=== PATIENT | male | born 1965 | race African-American/Black ===

== ENCOUNTER 2023-06-03 17:49 | Inpatient (IN) ==
[2023-06-03 18:07] VITALS: BMI 23.3
[2023-06-03 18:25] LABS: BILIRUBIN,URINE NEGATIVE (NEGATIVE); BLOOD/HEMOGLOBIN,URINE 5+ (NEGATIVE); GLUCOSE, URINE NEGATIVE (NEGATIVE); KETONES,URINE NEGATIVE (NEGATIVE); LEUKOCYTE ESTERASE ,URINE 3+ (NEGATIVE); NITRITES,URINE POSITIVE (NEGATIVE); PROTEIN,URINE 3+ (NEGATIVE); UROBILINOGEN,URINE NORMAL (NORMAL)
[2023-06-03 18:39] LABS: APPEARANCE,URINE TURBID (CLEAR); BACTERIA,URINE 2+ /HPF (NEGATIVE); COLOR,URINE YELLOW (YELLOW); RBC,URINE 0-2 /HPF (0-3); SQUAMOUS EPITHELIAL CELL,UR RARE /HPF (NEGATIVE)
[2023-06-03] MEDS ORDERED: ZOFRAN INJ 4 MG VIAL IVP ONE (18:54)
[2023-06-03] MEDS ORDERED: MORPHINE SULFATE INJ 4 MG IVP ONE (18:54)
[2023-06-03] MEDS ORDERED: MORPHINE SULFATE INJ 4 MG ONE (19:06)
[2023-06-03] MEDS ORDERED: ZOFRAN INJ 4 MG VIAL ONE (19:06)
[2023-06-03 19:12] LABS: HEMOGLOBIN 13.2 g/dL (13.5-18.0); NEUTROPHILS # (AUTO) 12.4 x10^3/uL (2.2-4.8); RED BLOOD COUNT 4.26 X10^6/uL (4.7-6.0)
[2023-06-03 19:16] LABS: BASOPHILS % (AUTO) 0.2 % (0.2-1.0); EOSINOPHILS % (AUTO) 0.1 % (0.9-2.9); HEMATOCRIT 38.1 % (42.0-54.0); LYMPHOCYTES # (AUTO) 0.9 X10^3/uL (1.3-2.9); MEAN CORPUSCULAR HGB CONC 34.6 g/dL (33.0-35.0); MEAN CORPUSCULAR VOLUME 89.4 fL (80.0-100.0); MONOCYTES # (AUTO) 1.2 x10^3/uL (0.3-0.8); MONOCYTES % (AUTO) 8.4 % (0.0-13.0); NEUTROPHILS % (AUTO) 85.3 % (42.0-75.0); PLATELET COUNT 300 X10^3/uL (150.0-450.0); RED CELL DISTRIBUTION WIDTH 12.5 % (11.6-16.5); WHITE BLOOD COUNT 14.5 X10^3/uL (3.6-10.0)
[2023-06-03 19:22] LABS: ALANINE AMINOTRANSFERASE 16 Units/L (12-78); ALBUMIN 3.2 g/dL (3.4-5.0); ALKALINE PHOSPHATASE 68 Units/L (46-116); ASPARTATE AMINO TRANSFERASE 15 Units/L (15-37); BLOOD UREA NITROGEN 11 mg/dL (7-18); CALCIUM 8.5 mg/dL (8.5-10.1); CARBON DIOXIDE 29.2 mmol/L (21-32); CHLORIDE 98 mmol/L (98-107); COR CA(FOR HYPOALB) 9.1 mg/dL (8.5-10.1); CREATININE 1.13 mg/dL (0.70-1.30); GLUCOSE 107 mg/dL (65-99); POTASSIUM 3.6 mmol/L (3.5-5.1); SODIUM 133 mmol/L (136-145); TOTAL PROTEIN 6.7 g/dL (6.4-8.2); eGFR NON BLACK RACES > 60 (>60)
--- NOTE | 2023-06-03 20:05 | CT ---
HISTORYpt c/o of swollen right side of groin and painful urination x2 days. pt states he does have a hernia to the area that he has had for 6 months.STUDYABDOMEN/PELVIS W/O CONCOMPARISONNoneTECHNIQUEMultiple axial images of the abdomen and pelvis were obtained from the lung bases to the pubic symphysis without the administration of IV contrast. Dose reduction techniques including Automated Exposure Control (AEC) and adjustment of mA and kV were utilized.FINDINGSThe lung bases are clear. Sensitivity is reduced without intravenous contrast. No liver lesion. The gallbladder is not distended. Normal adrenal glands. Normal right kidney.There is mild left hydronephrosis and mild left perinephric stranding. There is mild left hydroureter. No ureteral stone is identified. The urinary bladder demonstrates circumferential wall thickening. Prostate gland appears enlarged, heterogeneous and produces mass effect on the posterior urinary bladder. A degree of bladder outlet obstruction could be present.Unremarkable spleen contours. Noninflamed pancreas. Food noted within the stomach. The stomach is nonobstructed.There is a right inguinal hernia present containing small bowel and colon with fat and mesenteric vasculature.There are mildly distended small bowel loops present with air-fluid levels. No free air. No pelvic free fluid. Several tiny scattered bony sclerotic foci, too small to further characterize.IMPRESSIONRight inguinal hernia containing small bowel, colon, mesenteric fat and vasculature with signs of small bowel obstruction.Enlarged urinary bladder with thickened wall. Enlarged heterogeneous prostate gland. Mild left hydronephrosis and hydroureter without visible stone. Chronic urinary bladder outlet obstruction could be present. There may be back pressure on the left kidney. A left pyelonephritis is suspected. Urinary bladder mass or prostate mass could be present, incompletely evaluated. Cystoscopic follow-up and PSA evaluation should be considered.Electronically signed by: Nba Cole (Jun 03, 2023 20:03:56)
--- NOTE | 2023-06-03 20:06 | DR.UPM ---
HPI Time Seen Time Seen by Provider: 06/03/23 18:35 Complaint Chief Complaint:: pt c/o of swollen right side of groin and painful urination x2 days. COVID-19 Coronavirus risk:travel/contact w/high risk person: No Has patient experienced Coronavirus symptoms: No Source History Provided: Patient Mode of Arrival Mode of Arrival: Ambulatory Timing Onset of Chief Complaint: 06/01/23 PMH PMH Past Medical History: No Past Surgical History: Yes Surgical History: Ortho Surgery Past Surgical History Comment: arm Family History History of Family Medical Conditions: No Social History Does patient currently use any type of tobacco product: No Have you used tobacco products in the last 12 months: No Type of Tobacco Use: None Does any household member use tobacco: No Alcohol Use: Occasionally Do you use any recreational Drugs:: No Lives With: Family Lives Where: Home Travel Risk Coronavirus risk:travel/contact w/high risk person: No Has patient experienced Coronavirus symptoms: No Infectious screening In the last 2 months have you had wt loss of >10#?: NO Have you had fever, night sweats or hemotysis?: No Have you traveled outside the country in the last 6 months?: No Isolation: Standard PE Vital Signs Vitals: Vital Signs Temperature 99.8 F Pulse Rate 95 Respiratory Rate 20 Respiratory Rate 20 Respiratory Rate 20 Blood Pressure 121/79 O2 Sat by Pulse Oximetry 98 ROR Labs Reviewed 06/03/23 19:03 06/03/23 19:03 Laboratory: WBC 14.5 X10^3/uL (3.6-10.0) H 06/03/23 19:03 RBC 4.26 X10^6/uL (4.7-6.0) L 06/03/23 19:03 Hgb 13.2 g/dL (13.5-18.0) L 06/03/23 19:03 Hct 38.1 % (42.0-54.0) L 06/03/23 19:03 MCV 89.4 fL (80.0-100.0) 06/03/23 19:03 MCH 31.0 pg (27.0-34.0) 06/03/23 19:03 MCHC 34.6 g/dL (33.0-35.0) 06/03/23 19:03 RDW 12.5 % (11.6-16.5) 06/03/23 19:03 Plt Count 300 X10^3/uL (150.0-450.0) 06/03/23 19:03 MPV 6.0 fL (7.4-11.0) L 06/03/23 19:03 Neut % (Auto) 85.3 % (42.0-75.0) H 06/03/23 19:03 Lymph % (Auto) 6.0 % (21.0-51.0) L 06/03/23 19:03 [place] % (Auto) 8.4 % (0.0-13.0) 06/03/23 19:03 Eos % (Auto) 0.1 % (0.9-2.9) L 06/03/23 19:03 Baso % (Auto) 0.2 % (0.2-1.0) 06/03/23 19:03 Neut # (Auto) 12.4 x10^3/uL (2.2-4.8) H 06/03/23 19:03 Lymph # (Auto) 0.9 X10^3/uL (1.3-2.9) L 06/03/23 19:03 [place] # (Auto) 1.2 x10^3/uL (0.3-0.8) H 06/03/23 19:03 Eos # (Auto) 0.0 x10^3/uL (0.0-0.2) 06/03/23 19:03 Baso # (Auto) 0.0 X10^3/uL (0.0-0.1) 06/03/23 19:03 Absolute Nucleated RBC 0.1 /100WBC 06/03/23 19:03 Sodium 133 mmol/L (136-145) L 06/03/23 19:03 Corrected Sodium TNP 06/03/23 19:03 Potassium 3.6 mmol/L (3.5-5.1) 06/03/23 19:03 Chloride 98 mmol/L (98-107) 06/03/23 19:03 Carbon Dioxide 29.2 mmol/L (21-32) 06/03/23 19:03 BUN 11 mg/dL (7-18) 06/03/23 19:03 Creatinine 1.13 mg/dL (0.70-1.30) 06/03/23 19:03 Est GFR (MDRD) Af Amer > 60 (>60) 06/03/23 19:03 Est GFR (MDRD) Non-Af > 60 (>60) 06/03/23 19:03 Glucose 107 mg/dL (65-99) H 06/03/23 19:03 Calcium 8.5 mg/dL (8.5-10.1) 06/03/23 19:03 Corrected Calcium 9.1 mg/dL (8.5-10.1) 06/03/23 19:03 Total Bilirubin 1.40 mg/dL (0.2-1.0) H 06/03/23 19:03 AST 15 Units/L (15-37) 06/03/23 19:03 ALT 16 Units/L (12-78) 06/03/23 19:03 Alkaline Phosphatase 68 Units/L (46-116) 06/03/23 19:03 Total Protein 6.7 g/dL (6.4-8.2) 06/03/23 19:03 Albumin 3.2 g/dL (3.4-5.0) L 06/03/23 19:03 Globulin 3.5 g/dL (2.5-4.5) 06/03/23 19:03 Albumin/Globulin Ratio 0.9 Ratio (1.1-2.1) L 06/03/23 19:03 Specimen Type Clean catch urine 06/03/23 18:14 Urine Color Yellow (YELLOW) 06/03/23 18:14 Urine Appearance Turbid (CLEAR) 06/03/23 18:14 Urine pH 6.0 (5.0 - 8.0) 06/03/23 18:14 Ur Specific [place] 1.025 (1.000-1.030) 06/03/23 18:14 Urine Protein 3+ (NEGATIVE) 06/03/23 18:14 Urine Glucose (UA) Negative (NEGATIVE) 06/03/23 18:14 Urine Ketones Negative (NEGATIVE) 06/03/23 18:14 Urine Blood 5+ (NEGATIVE) 06/03/23 18:14 Urine Nitrite Positive (NEGATIVE) 06/03/23 18:14 Urine Bilirubin Negative (NEGATIVE) 06/03/23 18:14 Urine Urobilinogen Normal (NORMAL) 06/03/23 18:14 Ur Leukocyte Esterase 3+ (NEGATIVE) 06/03/23 18:14 Urine RBC 0-2 /HPF (0-3) 06/03/23 18:14 Urine WBC Tntc /HPF (0-5) A 06/03/23 18:14 Ur Squamous Epith Cells Rare /HPF (NEGATIVE) 06/03/23 18:14 Urine Bacteria 2+ /HPF (NEGATIVE) 06/03/23 18:14 Ur Culture Indicated? Yes/culture set up 06/03/23 18:14 Opioid Opioid Risk Tool Age (Willis box if 16-45): No History of Preadolescent Sexual Abuse: No Total: 0 Total Score Risk Category: Low Risk Copyright: Haris BRUNO predicting aberrant behaviors Discharge Plan Diagnosis Discharge Problem: Incarcerated right inguinal hernia, Acute pyelonephritis, Bladder outlet obstruction, Enlarged prostate with urinary obstruction Discharge Plan Patient Disposition: 09 ADMITTED INPATIENT Condition: Stable Prescriptions: No Action [facility] Concerns: Post Hospitalization: new medications and changes needed to prevent readmission or further decline. Pt educated and given instructions on all concerns. Plan of Treatment: Continue with present treatment and follow up plan. Pt is to keep follow up appointment as instructed and take medications as ordered. Orders to Discharge Patient Discharge Orders: Transfer (Routine); Ordered 06/03/23 Ordered By: ANUPAM PINEDA Follow ups/Referrals Follow ups/Referrals: NFD,None [Primary Care Provider] - 3 days Instructions Stand Alone Forms: Post Hospital Follow Up Care
[2023-06-03] MEDS ORDERED: ROCEPHIN VIAL 1 GRAM 1 G in NS 100 ML IV 100 ML IV SCH (20:45)
[2023-06-03] MEDS ORDERED: ROCEPHIN VIAL 1 GRAM ONE (21:13)
[2023-06-03] MEDS ORDERED: D5 LR 1,000 ML 1,000 ML IV ONE (21:14)
[2023-06-03] MEDS ORDERED: NS 100 ML IV 100 ML ONE (21:14)
[2023-06-03] MEDS: D5 LR 1,000 ML 1,000 ML IV SCH (21:23)
[2023-06-04] MEDS ORDERED: D5 LR 1,000 ML 1,000 ML IV ONE (04:33)
[2023-06-04] MEDS: D5 LR 1,000 ML 1,000 ML IV SCH ×4 (04:54→21:38)
[2023-06-04 06:16] LABS: BASOPHILS % (AUTO) 0.3 % (0.2-1.0); EOSINOPHILS # (AUTO) 0.1 x10^3/uL (0.0-0.2); EOSINOPHILS % (AUTO) 0.4 % (0.9-2.9); HEMATOCRIT 35.4 % (42.0-54.0); HEMOGLOBIN 12.5 g/dL (13.5-18.0); LYMPHOCYTES # (AUTO) 0.6 X10^3/uL (1.3-2.9); LYMPHOCYTES % (AUTO) 4.8 % (21.0-51.0); MEAN CORPUSCULAR HEMOGLOBIN 31.1 pg (27.0-34.0); MEAN CORPUSCULAR HGB CONC 35.1 g/dL (33.0-35.0); MEAN CORPUSCULAR VOLUME 88.4 fL (80.0-100.0); MEAN PLATELET VOLUME 6.1 fL (7.4-11.0); MONOCYTES # (AUTO) 1.2 x10^3/uL (0.3-0.8); MONOCYTES % (AUTO) 9.6 % (0.0-13.0); NEUTROPHILS # (AUTO) 10.8 x10^3/uL (2.2-4.8); NEUTROPHILS % (AUTO) 84.9 % (42.0-75.0); PLATELET COUNT 293 X10^3/uL (150.0-450.0); RED BLOOD COUNT 4.01 X10^6/uL (4.7-6.0); RED CELL DISTRIBUTION WIDTH 12.6 % (11.6-16.5); WHITE BLOOD COUNT 12.8 X10^3/uL (3.6-10.0)
[2023-06-04 06:31] LABS: ALANINE AMINOTRANSFERASE 12 Units/L (12-78); ALBUMIN 2.6 g/dL (3.4-5.0); ALKALINE PHOSPHATASE 58 Units/L (46-116); ASPARTATE AMINO TRANSFERASE 14 Units/L (15-37); BLOOD UREA NITROGEN 10 mg/dL (7-18); CARBON DIOXIDE 27.1 mmol/L (21-32); CHLORIDE 99 mmol/L (98-107); COR CA(FOR HYPOALB) 9.1 mg/dL (8.5-10.1); COR NA(FOR HYPERGLY) 133 mmol/L (136-145); CREATININE 0.93 mg/dL (0.70-1.30); GLUCOSE 120 mg/dL (65-99); MAGNESIUM 1.7 mg/dL (2.0-2.9); POTASSIUM 3.7 mmol/L (3.5-5.1); SODIUM 133 mmol/L (136-145); eGFR NON BLACK RACES > 60 (>60)
--- NOTE | 2023-06-04 08:12 | EKG ---
Test Reason : preop clearance Blood Pressure : */* mmHG Vent. Rate : 75 BPM Atrial Rate : 75 BPM P-R Int : 122 ms QRS Dur : 94 ms QT Int : 366 ms P-R-T Axes : 64 -51 52 degrees QTc Int : 408 ms Normal sinus rhythm Left anterior fascicular block Abnormal ECG No previous ECGs available Confirmed by Lacho Linn ([id number]) on 06/05/2023 8:23:42 AM Referred By: Confirmed By: Lacho Linn
[2023-06-04] MEDS ORDERED: ZOFRAN INJ 4 MG VIAL ONE (08:23)
[2023-06-04] MEDS ORDERED: DILAUDID INJ ONE (08:23)
[2023-06-04] MEDS: DILAUDID INJ IVP PRN ×2 (08:32→19:43)
[2023-06-04] MEDS: ZOFRAN INJ 4 MG VIAL IVP PRN (08:33)
--- NOTE | 2023-06-04 08:44 | RAD ---
HISTORYAbdominal painSTUDYKUBCOMPARISONNoneFIND INGSAbdominal gas pattern is nonspecific and nonobstructive. No abnormal masses or abnormal calcifications are identified. Bladder appears distended. Regional skeleton is intact.IMPRESSIONNonspecific, nonobstructive bowel gas patternDistended bladderElectronically signed by: TAM ALMONTE (Jun 04, 2023 08:43:38)
--- NOTE | 2023-06-04 08:46 | RAD ---
HISTORYAbdominal painSTUDYChest AP portableCOMPARISONNoneFINDINGSHeart size is normal. Anamika are normal. Lungs are generally hyperinflated but free of acute infiltrates. No pleural effusions are identified. There is minimal subsegmental atelectasis in the left costophrenic angle. Bony thorax is unremarkable.IMPRESSIONLungs generally hyperinflated but free of acute infiltrates.Electronically signed by: TAM ALMONTE (Jun 04, 2023 08:45:42)
[2023-06-04] MEDS ORDERED: ROCEPHIN VIAL 1 GRAM 1 G in NS 100 ML IV 100 ML IV SCH (09:00)
[2023-06-04] MEDS ORDERED: K-DUR TAB 20 MEQ PO SCH (14:00)
[2023-06-04] MEDS ORDERED: CONSULT PHARMACY - POTASSIUM & MAGNESIUM XX SCH (14:00)
[2023-06-04] MEDS: MAG-OX TAB PO SCH ×2 (14:31→15:17)
[2023-06-05] MEDS: ROCEPHIN VIAL 1 GRAM 1 G in NS 100 ML IV 100 ML IV SCH ×2 (02:26→22:30)
[2023-06-05] MEDS: D5 LR 1,000 ML 1,000 ML IV SCH (06:10)
[2023-06-05 06:27] LABS: BASOPHILS % (AUTO) 0.4 % (0.2-1.0); EOSINOPHILS # (AUTO) 0.2 x10^3/uL (0.0-0.2); EOSINOPHILS % (AUTO) 1.8 % (0.9-2.9); HEMATOCRIT 37.7 % (42.0-54.0); HEMOGLOBIN 13.1 g/dL (13.5-18.0); LYMPHOCYTES % (AUTO) 12.4 % (21.0-51.0); MEAN CORPUSCULAR HEMOGLOBIN 31.4 pg (27.0-34.0); MEAN CORPUSCULAR HGB CONC 34.7 g/dL (33.0-35.0); MEAN CORPUSCULAR VOLUME 90.6 fL (80.0-100.0); MEAN PLATELET VOLUME 7.1 fL (7.4-11.0); MONOCYTES # (AUTO) 0.8 x10^3/uL (0.3-0.8); MONOCYTES % (AUTO) 9.4 % (0.0-13.0); NEUTROPHILS # (AUTO) 6.3 x10^3/uL (2.2-4.8); PLATELET COUNT 295 X10^3/uL (150.0-450.0); RED BLOOD COUNT 4.16 X10^6/uL (4.7-6.0); RED CELL DISTRIBUTION WIDTH 12.6 % (11.6-16.5); WHITE BLOOD COUNT 8.4 X10^3/uL (3.6-10.0)
[2023-06-05 06:40] LABS: ALANINE AMINOTRANSFERASE 21 Units/L (12-78); ALBUMIN 2.9 g/dL (3.4-5.0); ALKALINE PHOSPHATASE 65 Units/L (46-116); ASPARTATE AMINO TRANSFERASE 25 Units/L (15-37); BLOOD UREA NITROGEN 8 mg/dL (7-18); CALCIUM 8.4 mg/dL (8.5-10.1); CARBON DIOXIDE 30.5 mmol/L (21-32); CHLORIDE 98 mmol/L (98-107); COR CA(FOR HYPOALB) 9.3 mg/dL (8.5-10.1); CREATININE 0.98 mg/dL (0.70-1.30); GLUCOSE 101 mg/dL (65-99); POTASSIUM 3.9 mmol/L (3.5-5.1); SODIUM 134 mmol/L (136-145); eGFR NON BLACK RACES > 60 (>60)
[2023-06-05] MEDS ORDERED: LR 1,000 ML IV 1,000 ML IV ONE (07:15)
[2023-06-05] MEDS ORDERED: ANCEF VIAL 1 GRAM ONE (07:15)
[2023-06-05] MEDS ORDERED: NS 100 ML IV 100 ML ONE (07:16)
[2023-06-05] MEDS ORDERED: QUELICIN (OR ANECTINE) ONE (07:26)
[2023-06-05] MEDS ORDERED: ZOFRAN INJ 4 MG VIAL ONE (07:26)
[2023-06-05] MEDS ORDERED: FENTANYL VIAL INJ 250 mcg ONE (07:26)
[2023-06-05] MEDS ORDERED: ZEMURON 100 MG VIAL ONE (07:26)
[2023-06-05] MEDS ORDERED: POLYMYXIN B SULFATE ONE (07:26)
[2023-06-05] MEDS ORDERED: PEPCID 20 MG VIAL ONE (07:26)
[2023-06-05] MEDS ORDERED: DIPRIVAN VIAL 20 ML ONE (07:26)
[2023-06-05] MEDS ORDERED: VERSED ONE (07:26)
[2023-06-05] MEDS ORDERED: XYLOCAINE 2 % (PLAIN) ONE (07:29)
[2023-06-05] MEDS ORDERED: SUPRANE ONE (07:36)
[2023-06-05] MEDS ORDERED: EPHEDRINE SULFATE INJ ONE (07:57)
[2023-06-05] MEDS ORDERED: CIPRO IV 400 MG PREMIX* 400 MG/200 ML IV.SOLN. IV ONE (08:03)
[2023-06-05] MEDS ORDERED: MARCAINE 0.5% ONE (08:50)
[2023-06-05] MEDS ORDERED: BRIDION ONE (09:03)
[2023-06-05] MEDS ORDERED: REGLAN INJ 10 MG VIAL IVP PRN (09:20)
[2023-06-05] MEDS ORDERED: DILAUDID INJ IVP PRN (09:20)
[2023-06-05] MEDS ORDERED: ZOFRAN INJ 4 MG VIAL IVP PRN (09:20)
[2023-06-05] MEDS ORDERED: BARHEMSYS INJ IVP PRN (09:20)
[2023-06-05] MEDS ORDERED: BENADRYL INJ 50 MG VIAL IVP PRN (09:20)
[2023-06-05] MEDS: DILAUDID INJ IVP PRN ×3 (10:38→22:31)
[2023-06-05] MEDS: D5 1/2 NS 1,000 ML 1,000 ML IV SCH ×2 (10:38→20:35)
[2023-06-05] MEDS: ZOFRAN INJ 4 MG VIAL IVP PRN (10:39)
--- NOTE | 2023-06-05 20:33 | DR.CONSULT ---
CONSULT Consultation for Day of: Date: 06/04/23 Chief Complaint Chief Complaint: Consult for UTI/medical management Allergies Allergies Allergy/AdvReac Type Severity Reaction Status Date / Time No Known Allergies Allergy Verified 06/03/23 18:21 History of Present Illness History of Present Illness: This is a 57-year-old white male who presented to the [facility] and emergency department with an incarcerated right inguinal hernia. He was admitted by general surgeon, Dr. Silva for surgical intervention for this. He is also noted to have a UTI on admission and was started on IV Rocephin. He denies any other medical problems and does not take any medications. Past Surgical History Surgical History: Ortho Surgery Social History Does patient currently use any type of tobacco product: No Have you used tobacco products in the last 12 months: No Type of Tobacco Use: None Does any household member use tobacco: No Alcohol Use: None Drug Use: Methamphetamine Medications Home Medications: No Known Allergies Allergy (Verified 06/03/23 18:21) CONTINUE taking the following medications NK 06/03/23 [History] Review of Systems Constitutional: Weakness Eyes: No Symptoms Reported ENT: No Symptoms Reported Respiratory: No Symptoms Reported Cardiovascular: No Symptoms Reported Gastrointestinal: Nausea Genitourinary: Dysuria Musculoskeletal: No Symptoms Reported Skin: No Symptoms Reported Neurological: No Symptoms Reported Physical Exam Vital Signs: Vital Signs Temperature 98.0 F Pulse Rate 88 Pulse Rate 86 Pulse Rate 80 Pulse Rate 78 Pulse Rate 80 Pulse Rate 78 Pulse Rate 79 Pulse Rate 75 Respiratory Rate 18 Respiratory Rate 18 Respiratory Rate 18 Respiratory Rate 17 Respiratory Rate 17 Respiratory Rate 16 Respiratory Rate 16 Respiratory Rate 16 Respiratory Rate 16 Respiratory Rate 16 Respiratory Rate 16 Blood Pressure 124/63 Blood Pressure 120/63 Blood Pressure 112/62 Blood Pressure 111/59 Blood Pressure 112/58 Blood Pressure 117/76 Blood Pressure 124/80 Blood Pressure 132/80 O2 Sat by Pulse Oximetry 96 O2 Sat by Pulse Oximetry 96 O2 Sat by Pulse Oximetry 96 O2 Sat by Pulse Oximetry 96 O2 Sat by Pulse Oximetry 100 O2 Sat by Pulse Oximetry 100 O2 Sat by Pulse Oximetry 100 O2 Sat by Pulse Oximetry 100 Oriented: Normal Eyes: Normal Ear: Normal Nose: Normal Throat: Normal Respiratory: Clear Throughout Cardiovascular: Normal : Dysuria Auscultation: Bowel Sounds: Normal Palpation: Normal Tenderness: Normal Skin: Normal Musculoskeletal: Normal Psychiatric: Normal Mood Description: Calm Affect: Normal Speech Pattern: Clear and Appropriate Plan (1) Acute pyelonephritis: Status: Acute Plan: Continue IV Rocephin (2) Enlarged prostate with urinary obstruction: Status: Acute Plan: Patient will need urological referral upon discharge home. In the meantime we will start him on tamsulosin 0.4 mg daily. (3) Incarcerated right inguinal hernia: Status: Acute Plan: Treatment per general surgery (4) Bladder outlet obstruction: Status: Acute Plan: Start tamsulosin 0.4 mg daily. Patient will need referral to urologist as outpatient.
[2023-06-05] MEDS: CIPRO IV 400 MG PREMIX* 400 MG/200 ML IV.SOLN. IV SCH (20:35)
--- NOTE | 2023-06-05 20:37 | PCM.PROG ---
Progress Note Progress Note for Day of Date of Exam: 06/05/23 Subjective Subjective: Patient is lying in bed and appears mildly uncomfortable this afternoon. He has had surgery earlier in the day. He does have pain medication ordered. He reports no other problems at this time. I do see that his blood pressure has trended up some this afternoon but it could be result of the pain he is having from his earlier surgery. We will continue to monitor this and address it if he remains elevated. Past Medical Family Social History Allergies: Allergies No Known Allergies Allergy (Verified 06/03/23 18:21) Review of Systems ROS: No change since H&P Vital Signs and I&O's Vital Signs: Vital Signs Temperature 98.5 F Temperature 97.9 F Temperature 97.9 F Temperature 97.9 F Pulse Rate [Right Brachial] 94 Pulse Rate [Right Brachial] 78 Pulse Rate [Right Brachial] 76 Pulse Rate [Right Brachial] 78 Respiratory Rate 20 Respiratory Rate 16 Respiratory Rate 16 Respiratory Rate 18 Respiratory Rate 18 Respiratory Rate 16 Blood Pressure [Right Arm] 177/75 Blood Pressure [Right Arm] 158/90 Blood Pressure [Right Arm] 155/90 Blood Pressure [Right Arm] 148/93 O2 Sat by Pulse Oximetry 95 O2 Sat by Pulse Oximetry 96 O2 Sat by Pulse Oximetry 96 O2 Sat by Pulse Oximetry 96 Intake and Output: Intake & Output 06/03/23 06/04/23 06/05/23 06/06/23 11:59 11:59 11:59 11:59 Intake Total 1495 / 1495 3673 / 3673 0 / 0 Output Total 675 / 675 1670 / 1670 900 / 900 Balance 820 / 820 2002 -900 / -900 Physical Exam Oriented: Normal Eyes: Normal Ear: Normal Nose: Normal Throat: Normal Respiratory: Normal Cardiovascular: Normal : Dysuria Auscultation: Bowel Sounds: Normal Tenderness: Normal Skin: Normal Musculoskeletal: Normal Psychiatric: Normal Mood Description: Calm Affect: Normal Speech Pattern: Clear and Appropriate Laboratory and Diagnostics 06/05/23 05:54 06/05/23 05:54 Labs: 06/03/23 18:14 Urine,Clean Catch Urine Culture - Final Klebsiella Oxytoca Laboratory WBC 8.4 X10^3/uL (3.6-10.0) 06/05/23 05:54 RBC 4.16 X10^6/uL (4.7-6.0) L 06/05/23 05:54 Hgb 13.1 g/dL (13.5-18.0) L 06/05/23 05:54 Hct 37.7 % (42.0-54.0) L 06/05/23 05:54 MCV 90.6 fL (80.0-100.0) 06/05/23 05:54 MCH 31.4 pg (27.0-34.0) 06/05/23 05:54 MCHC 34.7 g/dL (33.0-35.0) 06/05/23 05:54 RDW 12.6 % (11.6-16.5) 06/05/23 05:54 Plt Count 295 X10^3/uL (150.0-450.0) 06/05/23 05:54 MPV 7.1 fL (7.4-11.0) L 06/05/23 05:54 Neut % (Auto) 76.0 % (42.0-75.0) H 06/05/23 05:54 Lymph % (Auto) 12.4 % (21.0-51.0) L 06/05/23 05:54 [place] % (Auto) 9.4 % (0.0-13.0) 06/05/23 05:54 Eos % (Auto) 1.8 % (0.9-2.9) 06/05/23 05:54 Baso % (Auto) 0.4 % (0.2-1.0) 06/05/23 05:54 Neut # (Auto) 6.3 x10^3/uL (2.2-4.8) H 06/05/23 05:54 Lymph # (Auto) 1.0 X10^3/uL (1.3-2.9) L 06/05/23 05:54 [place] # (Auto) 0.8 x10^3/uL (0.3-0.8) 06/05/23 05:54 Eos # (Auto) 0.2 x10^3/uL (0.0-0.2) 06/05/23 05:54 Baso # (Auto) 0.0 X10^3/uL (0.0-0.1) 06/05/23 05:54 Absolute Nucleated RBC 0.0 /100WBC 06/05/23 05:54 Sodium 134 mmol/L (136-145) L 06/05/23 05:54 Corrected Sodium TNP 06/05/23 05:54 Potassium 3.9 mmol/L (3.5-5.1) 06/05/23 05:54 Chloride 98 mmol/L (98-107) 06/05/23 05:54 Carbon Dioxide 30.5 mmol/L (21-32) 06/05/23 05:54 BUN 8 mg/dL (7-18) 06/05/23 05:54 Creatinine 0.98 mg/dL (0.70-1.30) 06/05/23 05:54 Est GFR (MDRD) Af Amer > 60 (>60) 06/05/23 05:54 Est GFR (MDRD) Non-Af > 60 (>60) 06/05/23 05:54 Glucose 101 mg/dL (65-99) H 06/05/23 05:54 Calcium 8.4 mg/dL (8.5-10.1) L 06/05/23 05:54 Corrected Calcium 9.3 mg/dL (8.5-10.1) 06/05/23 05:54 Magnesium 2.0 mg/dL (2.0-2.9) 06/05/23 05:54 Total Bilirubin 0.80 mg/dL (0.2-1.0) 06/05/23 05:54 AST 25 Units/L (15-37) 06/05/23 05:54 ALT 21 Units/L (12-78) 06/05/23 05:54 Alkaline Phosphatase 65 Units/L (46-116) 06/05/23 05:54 Total Protein 7.0 g/dL (6.4-8.2) 06/05/23 05:54 Albumin 2.9 g/dL (3.4-5.0) L 06/05/23 05:54 Globulin 4.1 g/dL (2.5-4.5) 06/05/23 05:54 Albumin/Globulin Ratio 0.7 Ratio (1.1-2.1) L 06/05/23 05:54 Specimen Type Clean catch urine 06/03/23 18:14 Urine Color Yellow (YELLOW) 06/03/23 18:14 Urine Appearance Turbid (CLEAR) 06/03/23 18:14 Urine pH 6.0 (5.0 - 8.0) 06/03/23 18:14 Ur Specific [place] 1.025 (1.000-1.030) 06/03/23 18:14 Urine Protein 3+ (NEGATIVE) 06/03/23 18:14 Urine Glucose (UA) Negative (NEGATIVE) 06/03/23 18:14 Urine Ketones Negative (NEGATIVE) 06/03/23 18:14 Urine Blood 5+ (NEGATIVE) 06/03/23 18:14 Urine Nitrite Positive (NEGATIVE) 06/03/23 18:14 Urine Bilirubin Negative (NEGATIVE) 06/03/23 18:14 Urine Urobilinogen Normal (NORMAL) 06/03/23 18:14 Ur Leukocyte Esterase 3+ (NEGATIVE) 06/03/23 18:14 Urine RBC 0-2 /HPF (0-3) 06/03/23 18:14 Urine WBC Tntc /HPF (0-5) A 06/03/23 18:14 Ur Squamous Epith Cells Rare /HPF (NEGATIVE) 06/03/23 18:14 Urine Bacteria 2+ /HPF (NEGATIVE) 06/03/23 18:14 Ur Culture Indicated? Yes/culture set up 06/03/23 18:14 Plan (1) Acute pyelonephritis: Status: Acute Narrative Support Text: Urine culture has come back and shows the patient has grown out Klebsiella oxytocin and it is sensitive to Rocephin with PRIYANKA of less than 1. Plan: Continue IV Rocephin. (2) Enlarged prostate with urinary obstruction: Status: Acute Plan: Start the patient on tamsulosin. (3) Incarcerated right inguinal hernia: Status: Acute Plan: Treatment per general surgery. (4) Bladder outlet obstruction: Status: Acute Plan: Patient will need urology referral as outpatient.
[2023-06-05] MEDS: FLOMAX PO SCH (22:30)
[2023-06-06] MEDS: D5 1/2 NS 1,000 ML 1,000 ML IV SCH ×2 (03:30→05:02)
[2023-06-06] MEDS: DILAUDID INJ IVP PRN ×2 (05:38→09:36)
[2023-06-06 06:31] LABS: BASOPHILS % (AUTO) 0.3 % (0.2-1.0); EOSINOPHILS # (AUTO) 0.1 x10^3/uL (0.0-0.2); EOSINOPHILS % (AUTO) 0.9 % (0.9-2.9); HEMATOCRIT 35.5 % (42.0-54.0); HEMOGLOBIN 12.6 g/dL (13.5-18.0); LYMPHOCYTES # (AUTO) 0.9 X10^3/uL (1.3-2.9); LYMPHOCYTES % (AUTO) 12.7 % (21.0-51.0); MEAN CORPUSCULAR HEMOGLOBIN 31.3 pg (27.0-34.0); MEAN CORPUSCULAR HGB CONC 35.5 g/dL (33.0-35.0); MEAN CORPUSCULAR VOLUME 88.2 fL (80.0-100.0); MEAN PLATELET VOLUME 6.8 fL (7.4-11.0); MONOCYTES # (AUTO) 0.8 x10^3/uL (0.3-0.8); MONOCYTES % (AUTO) 11.8 % (0.0-13.0); NEUTROPHILS # (AUTO) 5.3 x10^3/uL (2.2-4.8); NEUTROPHILS % (AUTO) 74.3 % (42.0-75.0); PLATELET COUNT 275 X10^3/uL (150.0-450.0); RED BLOOD COUNT 4.02 X10^6/uL (4.7-6.0); RED CELL DISTRIBUTION WIDTH 12.6 % (11.6-16.5); WHITE BLOOD COUNT 7.1 X10^3/uL (3.6-10.0)
[2023-06-06 06:39] LABS: ALANINE AMINOTRANSFERASE 20 Units/L (12-78); ALBUMIN 2.3 g/dL (3.4-5.0); ALKALINE PHOSPHATASE 58 Units/L (46-116); ASPARTATE AMINO TRANSFERASE 16 Units/L (15-37); BLOOD UREA NITROGEN 4 mg/dL (7-18); CALCIUM 7.9 mg/dL (8.5-10.1); CARBON DIOXIDE 30.8 mmol/L (21-32); CHLORIDE 96 mmol/L (98-107); COR CA(FOR HYPOALB) 9.3 mg/dL (8.5-10.1); COR NA(FOR HYPERGLY) 133 mmol/L (136-145); CREATININE 0.78 mg/dL (0.70-1.30); GLUCOSE 125 mg/dL (65-99); MAGNESIUM 1.6 mg/dL (2.0-2.9); POTASSIUM 3.5 mmol/L (3.5-5.1); SODIUM 132 mmol/L (136-145); TOTAL PROTEIN 6.1 g/dL (6.4-8.2); eGFR NON BLACK RACES > 60 (>60)
[2023-06-06] MEDS ORDERED: CONSULT PHARMACY - POTASSIUM & MAGNESIUM XX SCH ×2 (07:00→08:00)
--- NOTE | 2023-06-06 08:05 | DR.PROGNOT ---
HOSPITAL PROGRESS NOTE Progress Note for Day of: Progress Note Date: 06/06/23 Chief Complaint Chief Complaint: feeling better today . still having significant lower abdominal pain , no N,V .. had low grade fever from UTI . WBC 7.1 , BS 125, [place] 2.3 .. BUN/Creat normal Past Medical Family Social History Allergies: Allergies No Known Allergies Allergy (Verified 06/03/23 18:21) Review Of Systems ROS: No change since H&P Vital Signs Vital Signs: Vital Signs Temperature 99.2 F Temperature 98.9 F Pulse Rate [Right Brachial] 81 Pulse Rate [Right Brachial] 91 Respiratory Rate 20 Respiratory Rate 20 Respiratory Rate 20 Respiratory Rate 20 Blood Pressure [Right Arm] 138/75 Blood Pressure [Right Arm] 133/80 O2 Sat by Pulse Oximetry 95 O2 Sat by Pulse Oximetry 95 Physical Exam Oriented: Normal Eyes: Normal Ear: Normal Nose: Normal Throat: Normal Respiratory: Normal Cardiovascular: Normal : Dysuria GI:Auscultation: Normal GI:Palpation: Other (soft, flat abdomen with lower abdominal tenderness .moderate scrotal edema .BS+) GI: Tenderness: Normal Skin: Normal Musculoskeletal: Normal Psychiatric: Normal Mood Description: Calm Affect: Normal Speech Pattern: Clear and Appropriate Laboratory and Diagnostics 06/06/23 05:25 06/06/23 05:25 Labs: 06/03/23 18:14 Urine,Clean Catch Urine Culture - Final Klebsiella Oxytoca Laboratory WBC 7.1 X10^3/uL (3.6-10.0) 06/06/23 05:25 RBC 4.02 X10^6/uL (4.7-6.0) L 06/06/23 05:25 Hgb 12.6 g/dL (13.5-18.0) L 06/06/23 05:25 Hct 35.5 % (42.0-54.0) L 06/06/23 05:25 MCV 88.2 fL (80.0-100.0) 06/06/23 05:25 MCH 31.3 pg (27.0-34.0) 06/06/23 05:25 MCHC 35.5 g/dL (33.0-35.0) H 06/06/23 05:25 RDW 12.6 % (11.6-16.5) 06/06/23 05:25 Plt Count 275 X10^3/uL (150.0-450.0) 06/06/23 05:25 MPV 6.8 fL (7.4-11.0) L 06/06/23 05:25 Neut % (Auto) 74.3 % (42.0-75.0) 06/06/23 05:25 Lymph % (Auto) 12.7 % (21.0-51.0) L 06/06/23 05:25 [place] % (Auto) 11.8 % (0.0-13.0) 06/06/23 05:25 Eos % (Auto) 0.9 % (0.9-2.9) 06/06/23 05:25 Baso % (Auto) 0.3 % (0.2-1.0) 06/06/23 05:25 Neut # (Auto) 5.3 x10^3/uL (2.2-4.8) H 06/06/23 05:25 Lymph # (Auto) 0.9 X10^3/uL (1.3-2.9) L 06/06/23 05:25 [place] # (Auto) 0.8 x10^3/uL (0.3-0.8) 06/06/23 05:25 Eos # (Auto) 0.1 x10^3/uL (0.0-0.2) 06/06/23 05:25 Baso # (Auto) 0.0 X10^3/uL (0.0-0.1) 06/06/23 05:25 Absolute Nucleated RBC 0.0 /100WBC 06/06/23 05:25 Sodium 132 mmol/L (136-145) L 06/06/23 05:25 Corrected Sodium 133 mmol/L (136-145) L 06/06/23 05:25 Potassium 3.5 mmol/L (3.5-5.1) 06/06/23 05:25 Chloride 96 mmol/L (98-107) L 06/06/23 05:25 Carbon Dioxide 30.8 mmol/L (21-32) 06/06/23 05:25 BUN 4 mg/dL (7-18) L 06/06/23 05:25 Creatinine 0.78 mg/dL (0.70-1.30) 06/06/23 05:25 Est GFR (MDRD) Af Amer > 60 (>60) 06/06/23 05:25 Est GFR (MDRD) Non-Af > 60 (>60) 06/06/23 05:25 Glucose 125 mg/dL (65-99) H 06/06/23 05:25 Calcium 7.9 mg/dL (8.5-10.1) L 06/06/23 05:25 Corrected Calcium 9.3 mg/dL (8.5-10.1) 06/06/23 05:25 Magnesium 1.6 mg/dL (2.0-2.9) L 06/06/23 05:25 Total Bilirubin 0.50 mg/dL (0.2-1.0) 06/06/23 05:25 AST 16 Units/L (15-37) 06/06/23 05:25 ALT 20 Units/L (12-78) 06/06/23 05:25 Alkaline Phosphatase 58 Units/L (46-116) 06/06/23 05:25 Total Protein 6.1 g/dL (6.4-8.2) L 06/06/23 05:25 Albumin 2.3 g/dL (3.4-5.0) L 06/06/23 05:25 Globulin 3.8 g/dL (2.5-4.5) 06/06/23 05:25 Albumin/Globulin Ratio 0.6 Ratio (1.1-2.1) L 06/06/23 05:25 Specimen Type Clean catch urine 06/03/23 18:14 Urine Color Yellow (YELLOW) 06/03/23 18:14 Urine Appearance Turbid (CLEAR) 06/03/23 18:14 Urine pH 6.0 (5.0 - 8.0) 06/03/23 18:14 Ur Specific [place] 1.025 (1.000-1.030) 06/03/23 18:14 Urine Protein 3+ (NEGATIVE) 06/03/23 18:14 Urine Glucose (UA) Negative (NEGATIVE) 06/03/23 18:14 Urine Ketones Negative (NEGATIVE) 06/03/23 18:14 Urine Blood 5+ (NEGATIVE) 06/03/23 18:14 Urine Nitrite Positive (NEGATIVE) 06/03/23 18:14 Urine Bilirubin Negative (NEGATIVE) 06/03/23 18:14 Urine Urobilinogen Normal (NORMAL) 06/03/23 18:14 Ur Leukocyte Esterase 3+ (NEGATIVE) 06/03/23 18:14 Urine RBC 0-2 /HPF (0-3) 06/03/23 18:14 Urine WBC Tntc /HPF (0-5) A 06/03/23 18:14 Ur Squamous Epith Cells Rare /HPF (NEGATIVE) 06/03/23 18:14 Urine Bacteria 2+ /HPF (NEGATIVE) 06/03/23 18:14 Ur Culture Indicated? Yes/culture set up 06/03/23 18:14 Assessment and Plan 1: s/p repair incarcerated RT inguinal hernia . same PO care. 2: UTI with Klebsiella , on IV Cipro . same IV Cipro today , possible D/C in am . Problem Patient Problems: Patient Problems Incarcerated right inguinal hernia (Acute) K40.30 Acute pyelonephritis (Acute) N10 Bladder outlet obstruction (Acute) N32.0 Enlarged prostate with urinary obstruction (Acute) N40.1, N13.8
[2023-06-06] MEDS: MAG-OX TAB PO SCH ×2 (09:36→21:06)
[2023-06-06] MEDS: ZOFRAN INJ 4 MG VIAL IVP PRN (09:36)
[2023-06-06] MEDS: CIPRO IV 400 MG PREMIX* 400 MG/200 ML IV.SOLN. IV SCH ×2 (09:36→21:07)
[2023-06-06] MEDS: D5 1/2 NS + KCL 20 MEQ/L 1,000 ML IV SCH ×2 (15:53→22:33)
[2023-06-06] MEDS: PERCOCET TAB 5/325 MG PO PRN ×2 (15:53→22:32)
[2023-06-06 16:32] VITALS: O2SAT 97
[2023-06-06 18:26] LABS: BILIRUBIN,URINE NEGATIVE (NEGATIVE); BLOOD/HEMOGLOBIN,URINE 3+ (NEGATIVE); GLUCOSE, URINE NEGATIVE (NEGATIVE); KETONES,URINE NEGATIVE (NEGATIVE); LEUKOCYTE ESTERASE ,URINE 3+ (NEGATIVE); NITRITES,URINE NEGATIVE (NEGATIVE); PROTEIN,URINE 1+ (NEGATIVE); UROBILINOGEN,URINE NORMAL (NORMAL)
[2023-06-06 18:51] LABS: APPEARANCE,URINE TURBID (CLEAR); COLOR,URINE YELLOW (YELLOW)
[2023-06-06 18:52] LABS: BACTERIA,URINE TRACE /HPF (NEGATIVE); RBC,URINE 30-50 /HPF (0-3); SQUAMOUS EPITHELIAL CELL,UR FEW /HPF (NEGATIVE)
[2023-06-06] MEDS: FLOMAX PO SCH (21:07)
--- NOTE | 2023-06-06 21:29 | PCM.PROG ---
Progress Note Progress Note for Day of Date of Exam: 06/06/23 Subjective Subjective: The patient is lying in bed again this morning and reports he is hurting still. He is better overall since surgery and I see he is still hypomagnesemic since yesterday. His urine culture grew out Klebsiella oxytoca which is sensitive to the IV Rocephin he is receiving. His pyelonephritis is improving since admission and his general condition has also improved. We will continue with his current treatment and continue to replace his electrolytes for correction. Past Medical Family Social History Allergies: Allergies No Known Allergies Allergy (Verified 06/03/23 18:21) Review of Systems ROS: No change since H&P Vital Signs and I&O's Vital Signs: Vital Signs Temperature 98.6 F Temperature 98.5 F Pulse Rate [Right Brachial] 92 Pulse Rate [Right Brachial] 95 Respiratory Rate 20 Respiratory Rate 20 Respiratory Rate 20 Respiratory Rate 20 Blood Pressure [Right Arm] 145/73 Blood Pressure [Right Arm] 149/90 O2 Sat by Pulse Oximetry 97 O2 Sat by Pulse Oximetry 97 Intake and Output: Intake & Output 06/04/23 06/05/23 06/06/23 06/07/23 11:59 11:59 11:59 11:59 Intake Total 1495 / 1495 3673 / 3673 2036 / 2036 1628 / 1628 Output Total 675 / 675 1670 / 1670 2240 / 2240 Balance 820 / 820 2002 -204 / 204 1628 / 1628 Physical Exam Oriented: Normal Eyes: Normal Ear: Normal Nose: Normal Throat: Normal Respiratory: Normal Cardiovascular: Normal : Dysuria Auscultation: Bowel Sounds: Normal Tenderness: Normal Skin: Normal Musculoskeletal: Normal Psychiatric: Normal Mood Description: Calm Affect: Normal Speech Pattern: Clear and Appropriate Laboratory and Diagnostics 06/06/23 05:25 06/06/23 05:25 Labs: 06/03/23 18:14 Urine,Clean Catch Urine Culture - Final Klebsiella Oxytoca Laboratory WBC 7.1 X10^3/uL (3.6-10.0) 06/06/23 05:25 RBC 4.02 X10^6/uL (4.7-6.0) L 06/06/23 05:25 Hgb 12.6 g/dL (13.5-18.0) L 06/06/23 05:25 Hct 35.5 % (42.0-54.0) L 06/06/23 05:25 MCV 88.2 fL (80.0-100.0) 06/06/23 05:25 MCH 31.3 pg (27.0-34.0) 06/06/23 05:25 MCHC 35.5 g/dL (33.0-35.0) H 06/06/23 05:25 RDW 12.6 % (11.6-16.5) 06/06/23 05:25 Plt Count 275 X10^3/uL (150.0-450.0) 06/06/23 05:25 MPV 6.8 fL (7.4-11.0) L 06/06/23 05:25 Neut % (Auto) 74.3 % (42.0-75.0) 06/06/23 05:25 Lymph % (Auto) 12.7 % (21.0-51.0) L 06/06/23 05:25 [place] % (Auto) 11.8 % (0.0-13.0) 06/06/23 05:25 Eos % (Auto) 0.9 % (0.9-2.9) 06/06/23 05:25 Baso % (Auto) 0.3 % (0.2-1.0) 06/06/23 05:25 Neut # (Auto) 5.3 x10^3/uL (2.2-4.8) H 06/06/23 05:25 Lymph # (Auto) 0.9 X10^3/uL (1.3-2.9) L 06/06/23 05:25 [place] # (Auto) 0.8 x10^3/uL (0.3-0.8) 06/06/23 05:25 Eos # (Auto) 0.1 x10^3/uL (0.0-0.2) 06/06/23 05:25 Baso # (Auto) 0.0 X10^3/uL (0.0-0.1) 06/06/23 05:25 Absolute Nucleated RBC 0.0 /100WBC 06/06/23 05:25 Sodium 132 mmol/L (136-145) L 06/06/23 05:25 Corrected Sodium 133 mmol/L (136-145) L 06/06/23 05:25 Potassium 3.5 mmol/L (3.5-5.1) 06/06/23 05:25 Chloride 96 mmol/L (98-107) L 06/06/23 05:25 Carbon Dioxide 30.8 mmol/L (21-32) 06/06/23 05:25 BUN 4 mg/dL (7-18) L 06/06/23 05:25 Creatinine 0.78 mg/dL (0.70-1.30) 06/06/23 05:25 Est GFR (MDRD) Af Amer > 60 (>60) 06/06/23 05:25 Est GFR (MDRD) Non-Af > 60 (>60) 06/06/23 05:25 Glucose 125 mg/dL (65-99) H 06/06/23 05:25 Calcium 7.9 mg/dL (8.5-10.1) L 06/06/23 05:25 Corrected Calcium 9.3 mg/dL (8.5-10.1) 06/06/23 05:25 Magnesium 1.6 mg/dL (2.0-2.9) L 06/06/23 05:25 Total Bilirubin 0.50 mg/dL (0.2-1.0) 06/06/23 05:25 AST 16 Units/L (15-37) 06/06/23 05:25 ALT 20 Units/L (12-78) 06/06/23 05:25 Alkaline Phosphatase 58 Units/L (46-116) 06/06/23 05:25 Total Protein 6.1 g/dL (6.4-8.2) L 06/06/23 05:25 Albumin 2.3 g/dL (3.4-5.0) L 06/06/23 05:25 Globulin 3.8 g/dL (2.5-4.5) 06/06/23 05:25 Albumin/Globulin Ratio 0.6 Ratio (1.1-2.1) L 06/06/23 05:25 Specimen Type Clean catch urine 06/06/23 18:04 Urine Color Yellow (YELLOW) 06/06/23 18:04 Urine Appearance Turbid (CLEAR) 06/06/23 18:04 Urine pH 7.0 (5.0 - 8.0) 06/06/23 18:04 Ur Specific [place] 1.010 (1.000-1.030) 06/06/23 18:04 Urine Protein 1+ (NEGATIVE) 06/06/23 18:04 Urine Glucose (UA) Negative (NEGATIVE) 06/06/23 18:04 Urine Ketones Negative (NEGATIVE) 06/06/23 18:04 Urine Blood 3+ (NEGATIVE) 06/06/23 18:04 Urine Nitrite Negative (NEGATIVE) 06/06/23 18:04 Urine Bilirubin Negative (NEGATIVE) 06/06/23 18:04 Urine Urobilinogen Normal (NORMAL) 06/06/23 18:04 Ur Leukocyte Esterase 3+ (NEGATIVE) 06/06/23 18:04 Urine RBC 30-50 /HPF (0-3) A 06/06/23 18:04 Urine WBC 30-50 /HPF (0-5) A 06/06/23 18:04 Ur Squamous Epith Cells Few /HPF (NEGATIVE) 06/06/23 18:04 Urine Bacteria Trace /HPF (NEGATIVE) 06/06/23 18:04 Ur Culture Indicated? Yes/culture set up 06/06/23 18:04 Plan (1) Acute pyelonephritis: Status: Acute Narrative Support Text: Urine culture grew out Klebsiella oxytoca sensitive to IV Rocephin with PRIYANKA of less than 1. It is also sensitive to ciprofloxacin with PRIYANKA of less than 1. Plan: Continue IV Rocephin. (2) Enlarged prostate with urinary obstruction: Status: Acute Plan: Start the patient on tamsulosin. (3) Incarcerated right inguinal hernia: Status: Acute Plan: Treatment per general surgery. (4) Bladder outlet obstruction: Status: Acute Plan: Patient will need urology referral as outpatient. (5) Hypomagnesemia: Status: Acute Plan: Start magnesium oxide 400 mg p.o. twice daily.
[2023-06-06] MEDS: ROCEPHIN VIAL 1 GRAM 1 G in NS 100 ML IV 100 ML IV SCH (22:30)
[2023-06-07] MEDS: D5 1/2 NS + KCL 20 MEQ/L 1,000 ML IV SCH (01:13)
[2023-06-07 06:13] LABS: BASOPHILS % (AUTO) 0.4 % (0.2-1.0); EOSINOPHILS # (AUTO) 0.1 x10^3/uL (0.0-0.2); EOSINOPHILS % (AUTO) 1.6 % (0.9-2.9); HEMATOCRIT 34.6 % (42.0-54.0); HEMOGLOBIN 12.4 g/dL (13.5-18.0); LYMPHOCYTES % (AUTO) 14.3 % (21.0-51.0); MEAN CORPUSCULAR HEMOGLOBIN 31.4 pg (27.0-34.0); MEAN CORPUSCULAR VOLUME 87.2 fL (80.0-100.0); MEAN PLATELET VOLUME 6.3 fL (7.4-11.0); MONOCYTES # (AUTO) 0.8 x10^3/uL (0.3-0.8); MONOCYTES % (AUTO) 11.2 % (0.0-13.0); NEUTROPHILS # (AUTO) 5.1 x10^3/uL (2.2-4.8); NEUTROPHILS % (AUTO) 72.5 % (42.0-75.0); PLATELET COUNT 288 X10^3/uL (150.0-450.0); RED BLOOD COUNT 3.96 X10^6/uL (4.7-6.0); RED CELL DISTRIBUTION WIDTH 12.2 % (11.6-16.5)
[2023-06-07 06:45] LABS: ALANINE AMINOTRANSFERASE 20 Units/L (12-78); ALBUMIN 2.4 g/dL (3.4-5.0); ALKALINE PHOSPHATASE 69 Units/L (46-116); ASPARTATE AMINO TRANSFERASE 25 Units/L (15-37); BLOOD UREA NITROGEN 2 mg/dL (7-18); CALCIUM 8.2 mg/dL (8.5-10.1); CARBON DIOXIDE 32.9 mmol/L (21-32); CHLORIDE 98 mmol/L (98-107); COR CA(FOR HYPOALB) 9.5 mg/dL (8.5-10.1); COR NA(FOR HYPERGLY) 135 mmol/L (136-145); CREATININE 0.76 mg/dL (0.70-1.30); GLUCOSE 124 mg/dL (65-99); POTASSIUM 3.6 mmol/L (3.5-5.1); SODIUM 134 mmol/L (136-145); TOTAL PROTEIN 6.4 g/dL (6.4-8.2); eGFR NON BLACK RACES > 60 (>60)
[2023-06-07] MEDS ORDERED: CONSULT PHARMACY - POTASSIUM & MAGNESIUM XX SCH (08:00)
[2023-06-07] MEDS: MAG-OX TAB PO SCH (08:58)
[2023-06-07] MEDS: PERCOCET TAB 5/325 MG PO PRN (08:58)
[2023-06-07] MEDS: CIPRO IV 400 MG PREMIX* 400 MG/200 ML IV.SOLN. IV SCH (08:58)
[2023-06-07 10:18] VITALS: BP 147/91; PULSE 83; RESP 20; TEMP 98.3
[2023-06-07] MEDS ORDERED: K-DUR TAB 20 MEQ PO SCH (11:00)
== END 2023-06-07 12:00 | disposition home or self-care (01) | DRG 351 ==
LOC: ER 17:49 → U 22:10 → MED/SURG 06-04 11:16
PROVIDERS: ADMIT Surgery; ATTEND Surgery
DX: N10 Acute pyelonephritis; N32.0 Bladder-neck obstruction; N20.0 Calculus of kidney; K40.30 Unilateral inguinal hernia, with obstruction, without gangrene, not specified as recurrent; N40.1 Benign prostatic hyperplasia with lower urinary tract symptoms; N39.0 Urinary tract infection, site not specified; B96.89 Other specified bacterial agents as the cause of diseases classified elsewhere; E83.42 Hypomagnesemia